=== PATIENT | male | born 1960 | race African-American/Black ===

== ENCOUNTER 2017-05-13 08:25 | Inpatient (IN) | payer OTHER ==
[2017-05-13 09:00] LABS: Add Diff/Slide Review? Slide Review Added; Comments Flag Yes; Hematocrit 42 % (42-52); Hemoglobin 14.1 g/dl (14.0-18.0); Mean Corpuscular HGB Conc 34 g/dl (31-36); Mean Corpuscular Hemoglobin 29 pg (27-31); Mean Corpuscular Volume 86 fL (80-94); Mean Platelet Volume 7 um3 (7.4-10.4); Red Blood Count 4.88 10^6/ul (4.0-5.4); Red Cell Distribution Width 13 % (10.5-15)
--- NOTE | 2017-05-13 09:02 | RAD ---
INDICATION: Headaches. Weakness COMPARISON: None TECHNIQUE: Noncontrast axial source images were acquired from the skull base to the vertex. FINDINGS: Ventricles/sulci: There is cortical atrophy with compensatory dilatation of the CSF spaces. Brain parenchyma: There is periventricular and subcortical white matter change compatible with chronic ischemia. There are multiple, bilateral, basal ganglia lacunar type infarcts. Intracranial hemorrhage:None. Extra-axial spaces: There are no abnormal extra axial fluid collections or evidence of extra-axial mass. Calvarium: There is no calvarial fracture or other acute calvarial abnormality. There may be an ossicle at the skull base Scalp: There is no evidence of scalp or extracalvarial soft tissue abnormality. Paranasal sinuses/mastoid: The paranasal sinuses and mastoid air cells are clear. Other: None. IMPRESSION: CORTICAL ATROPHY WITH EVIDENCE OF PRIOR VASCULAR INSULT. NO ACUTE FINDINGS.
--- NOTE | 2017-05-13 09:03 | RAD ---
INDICATION: Weakness COMPARISON: None TECHNIQUE: An AP seated view was obtained. FINDINGS: Bones/Soft Tissues: There are no acute bony findings. Cardiomediastinal: The cardiomediastinal silhouette is normal. Lungs: There are no infiltrates. Pleura: There are no pleural effusions. Other: None IMPRESSION: NO ACTIVE DISEASE.
[2017-05-13 09:16] LABS: ALT 44 U/L (7-52); AST 25 U/L (13-39); Albumin 4.3 g/dL (3.2-5.2); Alkaline Phosphatase 67 U/L (34-104); Anion Gap 7 mmol/L (2-11); Blood Urea Nitrogen 34 mg/dL (6-24); C Reactive Protein 3.31 mg/L (< 5.00); CO2 Carbon Dioxide 26 mmol/L (22-32); Chloride 106 mmol/L (101-111); Creatine Kinase 84 U/L (10-223); EGFR African American 76.4 (>60); EGFR Non-African American 59.4 (>60); Globulin 3.5 g/dL (2-4); Glucose 137 mg/dL (70-100); Lipase 52 U/L (11.0-82.0); Magnesium 1.9 mg/dL (1.9-2.7); Potassium 3.9 mmol/L (3.5-5.0); Sodium 139 mmol/L (133-145); Total Protein 7.8 g/dL (6.4-8.9); Troponin I 0.03 ng/mL (<0.04)
[2017-05-13] MEDS ORDERED: Aspirin TAB* 325 MG PO ONE (09:22)
[2017-05-13 09:39] LABS: Acetaminophen < 15 mcg/mL; Alcohol < 10 mg/dL (<10); Salicylate < 2.50 mg/dL (<30)
[2017-05-13 09:54] LABS: Cholesterol 157 mg/dL; HDL Cholesterol 39.6 mg/dL; LDL Cholesterol 95 mg/dL; Triglycerides 113 mg/dL
[2017-05-13] MEDS ORDERED: Iohexol 350* (CONTRAST) 500 ML MDV IV ONE (10:03)
--- NOTE | 2017-05-13 11:26 | ED ---
Juan Sanford Angela, scribed for Shadi Alaniz MD on 05/13/17 at 0831 . Neurological HPI - HPI Summary HPI Summary: This pt is a 57 y/o male BIBA from [facility], [place] presenting to [facility] c/o a headache and weakness upon waking up today at 0530. Pt has a history of CVA x5 and previous presentations have included a headache. Pt states he has difficulty ambulating. EMS noted that the pt had some drift on the right arm. Pt denies SOB , chest pain, nausea, vomiting, diarrhea. - History of Current Complaint Stated Complaint: POSSIBLE STROKE Hx Obtained From: Patient, EMS Onset/Duration: Sudden Onset Character: Motor Weakness - Allergy/Home Medications Allergies/Adverse Reactions: Allergies Allergy/AdvReac Type Severity Reaction Status Date / Time No Known Allergies Allergy Verified 05/13/17 08:49 Home Medications: Home Medications ALPRAZolam TAB* [Xanax TAB*] 1 mg PO BID PRN 05/13/17 [History Confirmed ] Acetaminophen TAB* [Tylenol TAB*] 650 mg PO Q6H PRN 05/13/17 [History Confirmed 05/13/17] Aspirin TAB* [Aspirin 325 MG TAB*] 325 mg PO DAILY 05/13/17 [History Confirmed 05/13/17] Atorvastatin* [Lipitor*] 40 mg PO QPM 05/13/17 [History Confirmed 05/13/17] Clopidogrel TAB* [Plavix TAB*] 75 mg PO DAILY 05/13/17 [History Confirmed ] Heparin Sodium (Porcine) [Heparin Sodium] 1 ml SUBCUT Q12HR 05/13/17 [History Confirmed 05/13/17] Hydrochlorothiazide TAB* [Hydrodiuril TAB*] 25 mg PO DAILY 05/13/17 [History Confirmed 05/13/17] Lactase [Dairy Relief] 3,000 unit PO BID WITH MEALS 05/13/17 [History Confirmed 05/13/17] Lisinopril TAB* [Prinivil TAB*] 20 mg PO BID 05/13/17 [History Confirmed ] Nicotine PATCH 21 MG/24 HR* 21 mg TRANSDERM DAILY 05/13/17 [History Confirmed ] Pantoprazole Sodium [Protonix] 40 mg PO DAILY 05/13/17 [History Confirmed ] QUEtiapine TAB* [SEROquel TAB*] 25 mg PO DAILY 05/13/17 [History Confirmed 05/13] Spironolactone TAB* [Aldactone TAB*] 25 mg PO DAILY 05/13/17 [History Confirmed 05/13/17] amLODIPine TAB* [Norvasc 5 mg TAB*] 10 mg PO DAILY 05/13/17 [History Confirmed 05/13/17] busPIRone TAB* [Buspar TAB*] 10 mg PO BID 05/13/17 [History Confirmed 05/13/17] cloNIDine TAB* [Catapres 0.1 MG TAB*] 0.3 mg PO TID 05/13/17 [History Confirmed 05/13/17] oxyCODONE/Acetamin 5/325 MG* [Percocet 5/325 TAB*] 1 tab PO Q6H PRN 05/13/17 [ History Confirmed 05/13/17] PMH/Surg Hx/FS Hx/Imm Hx Cardiovascular History: Reports: Hx Hypertension GI History: Reports: Hx Gastroesophageal Reflux Disease Neurological History: Reports: Hx CVA - x5, Hx Headaches Psychiatric History: Reports: Hx Anxiety, Hx Bipolar Disorder - Family History Known Family History: Negative: Respiratory Disease - Social History Lives: Assisted Living Substance Use Type: Reports: None Smoking Status (MU): Never Smoked Tobacco Review of Systems Negative: Fever, Chills Eyes: Negative ENT: Negative Negative: Chest Pain Negative: Shortness Of Breath Gastrointestinal: Negative Genitourinary: Negative Musculoskeletal: Negative Skin: Negative Positive: Headache, Weakness All Other Systems Reviewed And Are Negative: Yes Physical Exam Triage Information Reviewed: Yes Vital Signs On Initial Exam: Initial Vitals Temp Pulse Resp BP Pulse Ox 98.1 F 80 14 127/91 96 05/13/17 08:25 05/13/17 08:25 05/13/17 08:25 05/13/17 08:25 05/13/17 08:25 Vital Signs Reviewed: Yes Appearance: Positive: Well-Appearing, No Pain Distress Skin: Positive: Warm, Skin Color Reflects Adequate Perfusion Head/Face: Positive: Normal Head/Face Inspection Eyes: Positive: EOMI, LINDA ENT: Positive: Normal ENT inspection Neck: Positive: Supple, Nontender Respiratory/Lung Sounds: Positive: Clear to Auscultation, Breath Sounds Present Cardiovascular: Positive: RRR Abdomen Description: Positive: Nontender Bowel Sounds: Positive: Present Musculoskeletal: Positive: Normal Neurological: Positive: Sensory/Motor Intact, Alert, Oriented to Person Place, Time, Other - Pt has mild bilateral drift on both arms. Both legs are weak. There are no sensation deficits. Pt has slurred speech, but it is at his baseline from previous CVA. Psychiatric: Positive: Affect/Mood Appropriate - Harrison Coma Scale Best Eye Response: 4 - Spontaneous Best Motor Response: 6 - Obeys Commands Best Verbal Response: 5 - Oriented Diagnostics - Vital Signs Vital Signs Temp Pulse Resp BP Pulse Ox 05/13/17 09:18 61 14 114/65 96 05/13/17 09:00 76 93 05/13/17 08:45 70 96 05/13/17 08:25 98.1 F 80 14 127/91 96 - Laboratory Lab Results: Lab Results 05/13/17 05/13/17 05/13/17 Range/Units 08:50 08:50 08:50 WBC (3.5-10.8) 10^3/ul RBC (4.0-5.4) 10^6/ul Hgb (14.0-18.0) g/dl Hct (42-52) % MCV (80-94) fL MCH (27-31) pg MCHC (31-36) g/dl RDW (10.5-15) % Plt Count (150-450) 10^3/ul MPV (7.4-10.4) um3 Neut % (Auto) (38-83) % Lymph % (Auto) (25-47) % Greenlee % (Auto) (1-9) % Eos % (Auto) (0-6) % Baso % (Auto) (0-2) % Absolute Neuts (auto) (1.5-7.7) 10^3/ul Absolute Lymphs (auto) (1.0-4.8) 10^3/ul Absolute Monos (auto) (0-0.8) 10^3/ul Absolute Eos (auto) (0-0.6) 10^3/ul Absolute Basos (auto) (0-0.2) 10^3/ul Absolute Nucleated RBC 10^3/ul Nucleated RBC % INR (Anticoag Therapy) 0.92 (0.89-1.11) APTT 28.0 (26.0-36.3) seconds Sodium 139 (133-145) mmol/L Potassium 3.9 (3.5-5.0) mmol/L Chloride 106 (101-111) mmol/L Carbon Dioxide 26 (22-32) mmol/L Anion Gap 7 (2-11) mmol/L BUN 34 H (6-24) mg/dL Creatinine 1.26 H (0.67-1.17) mg/dL Est GFR ( Amer) 76.4 (>60) Est GFR (Non-Af Amer) 59.4 (>60) BUN/Creatinine Ratio 27.0 H (8-20) Glucose 137 H (70-100) mg/dL Lactic Acid (0.5-2.0) mmol/L Calcium 10.0 (8.6-10.3) mg/dL Magnesium 1.9 (1.9-2.7) mg/dL Total Bilirubin 1.10 H (0.2-1.0) mg/dL AST 25 (13-39) U/L ALT 44 (7-52) U/L Alkaline Phosphatase 67 (34-104) U/L Total Creatine Kinase 84 (10-223) U/L CK-MB (CK-2) 1.2 (0.6-6.3) ng/mL Troponin I 0.03 (<0.04) ng/mL C-Reactive Protein 3.31 (< 5.00) mg/L B-Natriuretic Peptide 28 ( - 100) pg/mL Total Protein 7.8 (6.4-8.9) g/dL Albumin 4.3 (3.2-5.2) g/dL Globulin 3.5 (2-4) g/dL Albumin/Globulin Ratio 1.2 (1-3) Triglycerides 113 mg/dL Cholesterol 157 mg/dL LDL Cholesterol 95 mg/dL HDL Cholesterol 39.6 mg/dL Lipase 52 (11.0-82.0) U/L TSH 1.50 (0.34-5.60) mcIU/mL Salicylates < 2.50 (<30) mg/dL Acetaminophen < 15 mcg/mL Serum Alcohol < 10 (<10) mg/dL 05/13/17 05/13/17 Range/Units 08:50 08:50 WBC 3.0 L (3.5-10.8) 10^3/ul RBC 4.88 (4.0-5.4) 10^6/ul Hgb 14.1 (14.0-18.0) g/dl Hct 42 (42-52) % MCV 86 (80-94) fL MCH 29 (27-31) pg MCHC 34 (31-36) g/dl RDW 13 (10.5-15) % Plt Count 189 (150-450) 10^3/ul MPV 7 L (7.4-10.4) um3 Neut % (Auto) 42.7 (38-83) % Lymph % (Auto) 41.7 (25-47) % Greenlee % (Auto) 11.4 H (1-9) % Eos % (Auto) 3.4 (0-6) % Baso % (Auto) 0.8 (0-2) % Absolute Neuts (auto) 1.3 L (1.5-7.7) 10^3/ul Absolute Lymphs (auto) 1.3 (1.0-4.8) 10^3/ul Absolute Monos (auto) 0.3 (0-0.8) 10^3/ul Absolute Eos (auto) 0.1 (0-0.6) 10^3/ul Absolute Basos (auto) 0 (0-0.2) 10^3/ul Absolute Nucleated RBC 0 10^3/ul Nucleated RBC % 0.1 INR (Anticoag Therapy) (0.89-1.11) APTT (26.0-36.3) seconds Sodium (133-145) mmol/L Potassium (3.5-5.0) mmol/L Chloride (101-111) mmol/L Carbon Dioxide (22-32) mmol/L Anion Gap (2-11) mmol/L BUN (6-24) mg/dL Creatinine (0.67-1.17) mg/dL Est GFR ( Amer) (>60) Est GFR (Non-Af Amer) (>60) BUN/Creatinine Ratio (8-20) Glucose (70-100) mg/dL Lactic Acid 1.3 (0.5-2.0) mmol/L Calcium (8.6-10.3) mg/dL Magnesium (1.9-2.7) mg/dL Total Bilirubin (0.2-1.0) mg/dL AST (13-39) U/L ALT (7-52) U/L Alkaline Phosphatase (34-104) U/L Total Creatine Kinase (10-223) U/L CK-MB (CK-2) (0.6-6.3) ng/mL Troponin I (<0.04) ng/mL C-Reactive Protein (< 5.00) mg/L B-Natriuretic Peptide ( - 100) pg/mL Total Protein (6.4-8.9) g/dL Albumin (3.2-5.2) g/dL Globulin (2-4) g/dL Albumin/Globulin Ratio (1-3) Triglycerides mg/dL Cholesterol mg/dL LDL Cholesterol mg/dL HDL Cholesterol mg/dL Lipase (11.0-82.0) U/L TSH (0.34-5.60) mcIU/mL Salicylates (<30) mg/dL Acetaminophen mcg/mL Serum Alcohol (<10) mg/dL Result Diagrams: 05/13/17 08:50 05/13/17 08:50 Lab Statement: Any lab studies that have been ordered have been reviewed, and results considered in the medical decision making process. - Radiology Chest XR Xray Interpretation: No Acute Changes - IMPRESSION: No acute disease. ED physician has reviewed this radiology report and agrees. Radiology Interpretation Completed By: Radiologist - CT Brain CT CT Interpretation: Positive (See Comments) - IMPRESSION: Cortical atrophy with evidence of prior vascular insult. No acute findings. ED physician has reviewed this radiology report and agrees. CT Interpretation Completed By: Radiologist - EKG 9:01 Cardiac Rate: NL - 71 bpm EKG Rhythm: Sinus Rhythm ST Segment: Normal Ectopy: None EKG Interpretation: Inferior Q wave NIH Scale - NIH Scale Level of Consciousness: Alert/Keenly Responsive Ask Patient the Month and His/Her Age: Both Correct Ask Pt to Open/Close Eyes and Medicare Biller/Release Non-Paretic Hand: Both Correctly Best Gaze (Only Horizontal Eye Movement): Normal Visual Field Testing: No Visual Loss Facial Paresis-Pt to Smile & Close Eyes or Grimace Symmetry: Normal/Symmetrical Motor Function - Right Arm: Drifts LT 10 seconds Motor Function - Left Arm: Drifts LT 10 seconds Motor Function - Right Leg: Drifts LT 10 seconds Motor Function - Left Leg: Drifts LT 10 seconds Limb Ataxia-Must be out of Proportion to Weakness Present: Absent Sensory (Use Pinprick to Test Arms/Legs/Trunk/Face): Normal Best Language (Describe Picture, Name Items): No Aphasia Dysarthria (Read Several Words): Slurs Some Words - CHRONIC SLURRING Extinction and Inattention: No Abnormality Total Score: 5 Course/Dx - Course Course Of Treatment: ADMIT HOSPITALIST STABLE. CRITICAL CARE TIME LESS THAN 30 MINUTES. Assessment/Plan: This pt is a 57 y/o male BIBA from [facility], [place] presenting to [facility] c/o a headache and weakness upon waking up today at 0530. Pt has a history of CVA x5 and previous presentations have included a headache. Pt states he has difficulty ambulating. EMS noted that the pt had some drift on the right arm. Pt denies SOB, chest pain, nausea, vomiting, diarrhea. Labs, chest XR, and CT brain were obtained. In the ED, pt was given aspirin. CT brain revealed cortical atrophy with evidence of prior vascular insult. Chest XR showed no acute disease. Pt will be admitted by Dr. Coles in stable condition. Elevated BP noted and advised to follow up with PCP. Medications reviewed. - Diagnoses Provider Diagnoses: TIA (transient ischemic attack) - Physician Notifications Discussed Care Of Patient With: Katina Coles Time Discussed With Above Provider: 09:17 Instructed by Provider To: Other - I discussed the pt's case with Dr. Coles. She has agreed to admit the pt. Discharge - Discharge Plan Condition: Stable Disposition: ADMITTED TO [facility] documentation as recorded by the Juan morocho Angela accurately reflects the service I personally performed and the decisions made by me, Shadi Alaniz MD.
[2017-05-13] MEDS ORDERED: oxyCODONE/Acetamin 5/325 MG* TAB PO PRN (12:22)
[2017-05-13] MEDS ORDERED: ALPRAZolam TAB* 0.5 MG PO PRN (12:22)
[2017-05-13] MEDS ORDERED: Acetaminophen TAB* 325 MG PO PRN (12:22)
[2017-05-13] MEDS ORDERED: Atorvastatin* 80 MG TAB PO ONE (12:34)
[2017-05-13] MEDS: cloNIDine TAB* 0.1 MG PO SCH ×2 (13:58→20:20)
[2017-05-13] MEDS: Heparin VIAL(*) 5000 UNITS/ML VIAL (FIVE THOUSAND) SUBCUT SCH ×2 (14:02→21:47)
[2017-05-13 14:35] LABS: Urine Bacteria Absent (Absent); Urine Bilirubin Negative (Negative); Urine Glucose Negative (Negative); Urine Nitrite Negative (Negative)
[2017-05-13 14:51] LABS: Benzodiazepine Urine Screen Presumptive Positive (None Detect)
--- NOTE | 2017-05-13 15:21 | HP ---
CC: Dr. Maza" * ADMISSION HISTORY AND PHYSICAL: DATE OF ADMISSION: 05/13/17 PRIMARY CARE DOCTOR: Dr. Maza" through the [place]. MY ATTENDING WHILE IN THE HOSPITAL: Katina Coles DO * (DICTATED BY FREDDY BARAKAT) CHIEF COMPLAINT: Weakness and headache since 5 o'clock this morning. HISTORY OF PRESENT ILLNESS: Mr. Patel is a 57-year-old male with a past medical history significant for multiple CVAs, hypertension, bipolar disorder, and headache disorder, who woke up this morning with headache in the top of his head , which radiated down the back of his neck. The patient is alert and oriented x3 but is a poor historian and speaks tangentially often returning to talk about his conflict with his and daughter believing that they are stealing his money. Patient states he has increased weakness on the right side. The patient states that his symptoms are consistent with previous cerebrovascular accidents he has had. The patient states his most recent CVA was in April. The patient states he went to [facility] after that episode and from there to a detention. The patient states that his heart was pounding in his chest when he woke up this morning, but states that it was related to a bad dream. The patient states yesterday he was having issues with photophobia and this morning he had vision loss, which he was unable to describe, but that was similar to other strokes that he has had. The patient denies any recent illnesses, chest pain, shortness of breath, dizziness, nausea, vomiting, abdominal pain, constipation, or diarrhea. The patient states he has a heart murmur since he was a kid, but could not elaborate on that. The patient had what he believes was an echocardiogram 16 years ago in [place] with an episode of chest pain, but denies ever having coronary artery disease. The patient states that his most recent stroke was the only one he had ever been to a doctor for, in that he had 4 others between 2004 and 2008 for which he did not seek medical attention. PAST MEDICAL HISTORY: 1. Hypertension. 2. Cerebrovascular accident x5. 3. Bipolar disorder. 4. Anxiety. 5. GERD. 6. Headache. 7. Chronic pain. 8. Lactose intolerance. PAST SURGICAL HISTORY: Intussusception repair. MEDICATIONS: 1. Lipitor 40 mg p.o. daily. 2. BuSpar 10 mg b.i.d. 3. Lactase 3000 units with meals. 4. Spironolactone 25 mg daily. 5. Plavix 75 mg daily. 6. Percocet 5/325 q. 6 as needed for pain. 7. Clonidine 0.3 mg p.o. t.i.d. 8. Seroquel 25 mg p.o. daily. 9. HydroDIURIL 25 mg p.o. daily. 10. Protonix 40 mg p.o. daily. 11. Tylenol 650 mg q. 6 hours as needed for pain. 12. Nicotine patch 21 mg q. 24 hours. 13. Amlodipine 10 mg p.o. daily. 14. Aspirin 325 mg p.o. daily. 15. Lisinopril 20 mg p.o. daily. 16. Xanax 1 mg p.o. b.i.d. as needed for anxiety. 17. Heparin 1000 units subcutaneous q. 12 hours. ALLERGIES: The patient has no known drug allergies. FAMILY HISTORY: The patient cannot recall any family history. SOCIAL HISTORY: The patient quit smoking tobacco 2 months ago. The patient denies any recent alcohol use. The patient endorses remote history of marijuana and cocaine use. The patient is disabled, lives in a detention. The patient has an ex- and a daughter with whom he is currently in conflict. REVIEW OF SYSTEMS: The patient denies fevers, cough, changes in his urine, dysuria, hematuria, any rashes, or other changes. PHYSICAL EXAMINATION GENERAL: The patient is a 57-year-old male, who appears stated age, who is sitting on the edge of the stretcher in no acute distress. VITAL SIGNS: Blood pressure 134/91, heart rate 64, temperature 98.1, respiratory rate 16, oxygen saturation 97% on room air. HEENT: Head: Normocephalic, nontraumatic. Sclerae anicteric. Pharynx: Nonerythematous. Mucous membranes are moist. NECK: No lymphadenopathy. Supple. No carotid bruit auscultated. RESPIRATORY: Lungs clear to auscultation bilaterally. Good air exchange. CARDIAC: Regular rate and rhythm. No clicks, murmurs, gallops, or rubs. Pulses +2 in the bilateral radial, posterior tibial, dorsalis pedis areas. No edema noted. ABDOMEN: Soft, nontender, nondistended. Bowel sounds normoactive in all 4 quadrants. No abdominal bruits auscultated. No hepatosplenomegaly. : No suprapubic tenderness. No CVA tenderness. NEURO: Pupils equal, round, approximately 4 mm, reactive to light. Extraocular movements intact. There was a visual field defect to confrontation in the homonymous left lower quadrant. There was a slight right ptosis. There is a significant facial droop with slurring on the right side of the face. Forehead movement equal. Patient eyelids unable to be opened while being tightly closed. The patient states that there is decreased sensation in the right side of his face. No other cranial nerve abnormalities. Patient had 5/5 strength bilaterally in the proximal arm muscles. Patient's strength is 4/5 in the right vp product management and 5/5 in the left vp product management, 4/5 in distal and proximal of right- sided muscle groups and 5/5 in the distal and proximal of left-sided muscle groups. Biceps, patellar, and Achilles reflexes are all 2+ and equal bilaterally. SKIN: No rashes. Dry, intact. LABORATORY DATA/DIAGNOSTIC STUDIES: White blood cell count 3.0, hemoglobin 14.1, hematocrit 42. INR 0.92. APTT 28. Sodium 139, potassium 3.9, chloride 106, carbon dioxide 26, creatinine 1.26, BUN 34, glucose 137. Bilirubin 1.1, AST 25, ALT 44. Troponin 0.03. CRP is 3.31. BNP 28. LDL cholesterol 95, HDL cholesterol 59. Chest x-ray read as no active disease. Brain CT read as cortical atrophy with evidence of prior vascular insult, no acute findings. Head CTA is pending. EKG shows normal sinus rhythm, no ST changes, no other abnormalities. IMPRESSION: The patient is a 57-year-old male with deficits from previous strokes of unknown severity who presents with worsening deficits today possibly from transient ischemic attack or other stroke. We will next admit to telemetry and get assessed for risk factors and maximize secondary prevention. 1. Transient ischemic attack. The patient is already on near maximal secondary prevention. The patient is only on Lipitor 40 with LDL of 95 and a goal of 70. We will increase Lipitor to 80 mg p.o. daily. We will continue aspirin and Plavix at current doses. The patient is on home heparin for unknown reasons. We will discontinue this upon discharge, unless evidence of atrial fibrillation is found. We will order echocardiogram with bubble study and an MRI of the brain to distinguish new from old infarcts. We would recommend outpatient workup for atrial fibrillation possibly including Holter monitor. Will consult Neurology for recommendations. 2. Hypertension. Continue hypertensive medications at home doses. The patient is currently normotensive. We will repeat a BMP in the morning to assess for electrolyte disturbances from medications. 3. Bipolar disorder and anxiety. Continue psychotropic medications at home dose. 4. Gastroesophageal reflux disease. Continue Protonix at home dose. 5. Headache disorder. Patient has Percocet and Tylenol ordered for pain. Patient states these work relatively well for headaches at home. I would not recommend any other medications for headache treatment due to stroke. 6. FEN. Heart heathy diet. No fluids running at this time. 7. DVT prophylaxis. The patient is high risk due to previous strokes. We will start on heparin 5000 units subcutaneous q. 12 hours. We will monitor CBC. 8. Code status. The patient would like to be a full code. The patient's healthcare proxy on record is his daughter, but he states that he would not like her to be his healthcare proxy any more. Social work consulted. 9. Disposition. The patient is currently admitted to telemetry and will be discharged to [facility] when able. 10. We will get neurology consult. TIME SPENT: Approximately 60 minutes were spent on this admission, 30 of which were spent [id number] with the patient obtaining history and physical. This case was discussed with my attending, Dr. Katina Coles and she is in agreement with this plan. FREDDY BARAKAT [id number]/CPS #: [id number] ALEJANDRINA
--- NOTE | 2017-05-13 15:44 | ECHO ---
Patient: JOHANNA BUSTAMANTE [facility] Rec#: [id number] : 1960 Date: 05/13/2017 Age: 57y Height: 187.96 cm / 74.0 in Weight: 95.25 kg / 209.9 lbs Sex: M BSA: 2.22 Room#: 446 Admit Date#: 05/13/2017 Type: Inpatient Referring: Shadi Yanes MD Reading: Tomi St MD Coffee Machine Technician: Nedra HernandezRD,RDMS Transthoracic Echocardiogram Indication: TIA BP: 132/70 HR: 49 Rhythm: Bradycardia Findings History: HTN, CVA x 5, GERD Technical Comments: The study quality is fair. Completed 1520 Left Ventricle: The left ventricular chamber size is normal. Moderate to severe concentric left ventricular hypertrophy is observed. Mild global hypokinesis of the left ventricle is observed. There is mildly decreased left ventricular systolic function. The estimated ejection fraction is 40-45%. Abnormal left ventricular diastolic filling is observed, consistent with impaired relaxation. Left Atrium: The left atrium is mildly dilated. Right Ventricle: The right ventricle wall thickness is mildly increased. The right ventricular cavity size is normal. The right ventricular global systolic function is normal. Right Atrium: The right atrium is mildly dilated. The bubble study is negative. A patent foramen ovale is not demonstrated with color Doppler and agitated contrast. Aortic Valve: The aortic valve leaflets are mildly thickened. Systolic excursion of the aortic valve is normal. There is no evidence of aortic regurgitation. There is no evidence of aortic stenosis. Mitral Valve: The mitral valve leaflets are mildly thickened. There is a trace of mitral regurgitation. There is no evidence of mitral stenosis. Tricuspid Valve: The tricuspid valve leaflets are normal. There is trace tricuspid regurgitation. Unable to estimate the right ventricular systolic pressure. Pulmonic Valve: The pulmonic valve appears normal. There is a trace pulmonic regurgitation. Pericardium: There is no significant pericardial effusion. Aorta: The aortic root appears normal. There is no dilatation of the aortic arch. Pulmonary Artery: The main pulmonary artery appears normal. Venous: The inferior vena cava appears normal in size. There is an approximate 50% respiratory change in the inferior vena cava dimension. Contrast: Intravenous agitated saline contrast was used to assess intracardiac shunting. Conclusions A patent foramen ovale is not demonstrated with color Doppler and agitated contrast. Moderate to severe concentric left ventricular hypertrophy is observed. There is mildly decreased left ventricular systolic function. The estimated ejection fraction is 40-45%. Abnormal left ventricular diastolic filling is observed, consistent with impaired relaxation. The left atrium is mildly dilated. There is a trace of mitral regurgitation. There is trace tricuspid regurgitation. Unable to estimate the right ventricular systolic pressure. There is a trace pulmonic regurgitation. No reports of prior studies offered for comparison. Measurements Name Value Normal Range RVIDd (AP) 2D 2.5 cm (0.9 - 2.6) RVDdMajor (2D) 3.3 cm (2.2 - 4.4) RAd ISD 4CH 5.8 cm (3.4 - 4.9) RA (A4C)W 4.2 cm (2.9 - 4.6) IVSd (2D) 2.1 cm (0.6 - 1) LVPWd (2D) 1.9 cm (0.6 - 1) LVIDd (2D) 4.9 cm (3.6 - 5.4) LVIDs (2D) 3.9 cm - LV FS (2D) 21 % (25 - 45) Aortic Annulus 2.3 cm (1.4 - 2.6) Ao root diameter (2D) 3.2 cm (2.1 - 3.5) Ascending Ao 3.1 cm (2.1 - 3.4) Aortic arch 2.5 cm (1.8 - 3.4) LA dimension (AP) 2D 3.4 cm (2.3 - 3.8) LAd ISD 4CH 6.9 cm (2.9 - 5.3) LA ISD 4CH W 4.1 cm (2.5 - 4.5) Name Value Normal Range LA ESV SP 4CH (A/L) 79.76 ml - LA ESV SP 2CH (A/L) 70.86 ml - LA ESV BP (A/L) 84.74 ml - LA ESV BP (A/L) index 38 ml/m2 - LA ESV SP 4CH (MOD) 72.24 ml - LA ESV SP 2CH (MOD) 65.52 ml - Name Value Normal Range MV E-wave Vmax 0.3 m/sec - MV deceleration time 345 msec - MV A-wave Vmax 0.5 m/sec - MV E:A ratio 0.7 ratio - P. vein S-wave Vmax 0.4 m/sec - P. vein D-wave Vmax 0.4 m/sec - P. vein S:D Vmax ratio 1.02 ratio - P. vein A-wave duration 113 msec - LV lateral e' Vmax 0.09 m/sec - LV E:e' lateral ratio 3.3 ratio - Name Value Normal Range AV Vmax 1.5 m/sec - AV VTI 25.7 cm - AV peak gradient 9 mmHg - AV mean gradient 4.9 mmHg - LVOT Vmax 0.9 m/sec - LVOT VTI 15.1 cm - LVOT peak gradient 3.2 mmHg - LVOT mean gradient 1.7 mmHg - Name Value Normal Range RAP 8 mmHg - IVC diameter 2.1 cm -
[2017-05-13] MEDS: CMCS: Lactase Enzyme (NF) 3,000 UNIT TAB PO SCH (17:06)
[2017-05-13] MEDS ORDERED: Atorvastatin* 40 MG TAB PO SCH (18:00)
--- NOTE | 2017-05-13 19:04 | CONS ---
CONSULTATION REPORT: DATE OF CONSULT: 05/13/17 PATIENT OF: Dr. Yanes, Dr. Kolb and Dr. Coles. PRIMARY CARE DOCTOR: [facility] HISTORY OF PRESENT ILLNESS: Mr. Patel is a 57-year-old right-handed man, who has had multiple prior strokes, he says 5, the most recent one was in April and he was at [facility]. Today, he woke up with a bad headache at his vertex going to his neck. He denies any new numbness, weakness or speech problems. He told me he has had poor vision ever since one of his strokes, but denies anything is new. He also was wanting to go home now and it is unclear to me whether he had a different story for that reason versus just a poor historian. He apparently told Dr. Yanes that he had new visual loss. PAST MEDICAL HISTORY: He has a history of hypertension, his prior strokes, bipolar disorder, anxiety, GERD, headache, chronic pain, lactose intolerance. PAST SURGICAL HISTORY: He is status post intussusception repair. MEDICATIONS: At home included: 1. Lipitor 40 mg daily, now increased. 2. BuSpar 10 mg b.i.d. 3. Lactase with meals. 4. Spironolactone 25 mg daily. 5. Plavix 75 mg daily. 6. Aspirin 325 mg daily. 7. Percocet 5/325 p.r.n. pain. 8. Clonidine 0.3 mg t.i.d. 9. Seroquel 25 mg daily. 10. HydroDIURIL 25 mg daily. 11. Protonix 40 mg daily. 11. Nicotine patch 20 mg q.24 hours. 12. Amlodipine 10 mg daily. 13. Lisinopril 20 mg daily. 14. Xanax 1 mg b.i.d. as needed for anxiety. ALLERGIES: He has no known drug allergies. FAMILY HISTORY: He has no family history for stroke as far as he is aware. SOCIAL HISTORY: He quit smoking tobacco 2 months ago. He does not drink recently. He has had a remote history of marijuana and cocaine use. He is disabled, lives in a senior care. REVIEW OF SYSTEMS: Negative in all 14 spheres other than the HPI. PHYSICAL EXAM: Vital Signs: Temperature 97.9, pulse 72, respirations 52, blood pressure 132/70. He is alert and oriented x3. His speech was slurred, but fluent and he can name objects well. Cranial nerves II through XII were intact. Discs were sharp. Motor exam revealed normal tone and strength. Finger to nose was intact. He had left pronator drift, it is unclear whether this is old or new. Reflexes were 1 and equal. Toes were equivocal to downgoing. Sensation intact to light touch. Reflexes 1 and equal. Chest: Clear. Cardiovascular: Regular rate and rhythm. Abdomen: Soft with positive bowel sounds. DIAGNOSTIC STUDIES/LAB DATA: His CT scan was reviewed and showed diffuse cortical atrophy with white matter disease and several subcortical lacunar infarcts in both the left and right hemisphere. His CTA is pending. He is getting an echo with bubble study which is pending. Blood work had a white count 3000, otherwise normal CBC. Normal INR and PTT. Normal CMP other than BUN of 34, creatinine of 0.26. Total bilirubin of 1.10, LDL 95, HDL 139. UA has 3+ leuk esterase, 2+ white cells, 2+ red cells, absent bacteria. Toxicology was negative other than benzodiazepines. IMPRESSION: Case history is hard to pull apart since he is a poor historian. It will be useful to get his old records from [place] to see what workup was done , but also what his exam looked like at that point. Also, we are getting an MRI scan, which will be useful in addition to see if he has any more recent acute strokes. It looks like he has small vessel ischemic disease in his brain with some lacunar infarcts as well and most likely it is all related to his hypertension, but I would like to get further information and the MRI scan might help clarify. Depending on what that shows, we may pursue further cardiac workup if the bubble study is negative. He will continue the aspirin and Plavix and is on an increased dose of statin at this point. Thank you for sharing his case. [id number]/[facility] #: [id number] [facility]AN HOSPITALJacquie
[2017-05-13] MEDS ORDERED: Diazepam TAB(*) 5 MG PO ONE (19:47)
[2017-05-13] MEDS: Lisinopril TAB* 10 MG PO SCH (20:19)
[2017-05-13] MEDS: busPIRone TAB* 10 MG PO SCH (20:19)
[2017-05-13] MEDS: Nicotine Patch Removal NOTE PATCH OFF SCH (20:22)
[2017-05-14] MEDS: Heparin VIAL(*) 5000 UNITS/ML VIAL (FIVE THOUSAND) SUBCUT SCH ×3 (05:39→22:38)
[2017-05-14 05:55] LABS: Hematocrit 40 % (42-52); Hemoglobin 13.4 g/dl (14.0-18.0); Mean Corpuscular HGB Conc 33 g/dl (31-36); Mean Corpuscular Hemoglobin 29 pg (27-31); Mean Corpuscular Volume 86 fL (80-94); Mean Platelet Volume 7 um3 (7.4-10.4); Red Blood Count 4.68 10^6/ul (4.0-5.4); Red Cell Distribution Width 13 % (10.5-15); White Blood Count 3.6 10^3/ul (3.5-10.8)
[2017-05-14 06:29] LABS: BUN/Creatinine Ratio 22.6 (8-20); Calcium 9.6 mg/dL (8.6-10.3); EGFR African American 45.1 (>60); EGFR Non-African American 35.1 (>60); Potassium 4.6 mmol/L (3.5-5.0)
--- NOTE | 2017-05-14 08:11 | RAD ---
CPT II: CPT II Codes: 3100F INDICATION: Weakness with a history that includes "5 strokes" and "stent placement in head" COMPARISON: Same day CT of the brain dated May 13, 2017 that demonstrates evidence of widespread microvascular disease and age indeterminant lacunar infarctions. TECHNIQUE: A CT angiogram of the head and neck was performed with 80 cc of Omnipaque 350. Contiguous axial sections were obtained from the thoracic inlet through the cap[place] of [place]. Images were reconstructed in the sagittal, coronal planes and in a 3-D volume rendered format. The distal cervical internal carotid artery diameter is used as the denominater for stenosis measurement. CTA NECK: The common and internal carotid arteries are patent without hemodynamically significant stenosis. Right: Just below the carotid bifurcation the common carotid artery measures 9 mm in diameter and the right internal carotid artery just above the carotid bifurcation also measures 9 mm in diameter yielding 0% degree stenosis. There is a focus of coarse atherosclerotic calcification along the posterior margin of the proximal most right internal carotid artery. Beginning at the carotid bulb and extending along the posterior margin of the right internal carotid artery is a linear filling defect (image 129). Left: Just below the carotid bifurcation the common carotid artery measures 9 mm in diameter and the left internal carotid artery just above the carotid bifurcation also measures 9 mm in diameter yielding 0% degree stenosis. There is a focus of coarse atherosclerotic calcification along the anterolateral margin of the left carotid bulb. Beginning at the carotid bulb and extending along the posterior margin of the right internal carotid artery is a linear filling defect (image 123). The vertebral arteries appear patent at their origins. As the right vertebral artery enters the foramen magnum there is a stent. CTA does not reliably determine the patency of the small stent but there is contrast filling both below and immediately above the stent. The left vertebral artery is normal in course and caliber. CTA of the brain: The internal carotid, anterior and middle cerebral arteries appear are patent without high grade stenosis or occlusion. There is coarse atherosclerotic calcification at the clinoid segment of the bilateral internal carotid arteries (axial images 201-204). The vertebral, basilar and posterior cerebral arteries appear patent without high grade stenosis or occlusion. The [place] is complete with diminutive bilateral posterior communicating arteries identified. No focal luminal filling defect, aneurysm or vascular malformation is seen. NON-ARTERIAL FINDINGS: The bilateral basal ganglia there are elongate low density structures (for example image 237) that have a morphology consistent with perivascular spaces. The visualized lung apices exhibit centrilobular emphysematous changes. There are multilevel degenerative changes of the cervical spine including loss of intervertebral disc height and marginal osteophyte formation most severely affecting C6/C7. IMPRESSION: 1. Linear mural based filling defects at the bilateral carotid bulbs are suspicious for dissection flaps. This can be further elicited with carotid ultrasound. 2. Secondary findings of the right vertebral artery stent indicate stent patency although CTA less reliably evaluate patency of such a small stent. 3. No abrupt filling defects or focal aneurysmal dilatation.
[2017-05-14] MEDS ORDERED: Nicotine PATCH 21 MG/24 HR* PATCH TRANSDERM SCH (09:00)
[2017-05-14] MEDS: cloNIDine TAB* 0.1 MG PO SCH ×3 (09:50→20:50)
[2017-05-14] MEDS: QUEtiapine TAB* 25 MG PO SCH (09:50)
[2017-05-14] MEDS: Hydrochlorothiazide TAB* 25 MG PO SCH (09:50)
[2017-05-14] MEDS: amLODIPine TAB* 5 MG PO SCH (09:50)
[2017-05-14] MEDS: Aspirin TAB* 325 MG PO SCH (09:50)
[2017-05-14] MEDS: Clopidogrel TAB* 75 MG PO SCH (09:51)
[2017-05-14] MEDS: Lisinopril TAB* 10 MG PO SCH ×2 (09:51→20:50)
[2017-05-14] MEDS: busPIRone TAB* 10 MG PO SCH ×2 (09:51→22:38)
[2017-05-14] MEDS: Nicotine PATCH 14 MG/24 HR* PATCH TRANSDERM SCH (09:51)
[2017-05-14] MEDS: Spironolactone TAB* 25 MG PO SCH (09:51)
[2017-05-14] MEDS: CMCS: Lactase Enzyme (NF) 3,000 UNIT TAB PO SCH ×2 (09:52→19:37)
[2017-05-14] MEDS: CMCS: Pantoprazole TAB (NF) 40 MG TAB PO SCH (09:59)
[2017-05-14] MEDS ORDERED: NS 0.9% 1000 ML* 1,000 ML IV ONE (15:07)
--- NOTE | 2017-05-14 15:28 | PN ---
Subjective Date of Service: 05/14/17 Interval History: No overnight events. Mr. Patel is upset this morning that he is here; he wants to go home. He wants to go to [place] because he is in love. He says he feels better than yesterday--denies headache, blurry vision, double vision, weakness, numbness, palpitations. Family History: Unchanged from Admission Social History: Unchanged from Admission Past Medical History: Unchanged from Admission Objective Active Medications: Acetaminophen (Tylenol Tab*) 650 mg PO Q6H PRN PRN Reason: PAIN Alprazolam (Xanax Tab*) 1 mg PO BID PRN PRN Reason: ANXIETY Last Admin: 05/14/17 08:09 Dose: 1 mg Amlodipine Besylate (Norvasc Tab*) 10 mg PO DAILY [facility] Last Admin: 05/14/17 09:50 Dose: 10 mg Aspirin (Aspirin Tab*) 325 mg PO DAILY [facility] Last Admin: 05/14/17 09:50 Dose: 325 mg Buspirone HCl (Buspar Tab*) 10 mg PO BID [facility] Last Admin: 05/14/17 09:51 Dose: 10 mg Clonidine HCl (Catapres Tab*) 0.3 mg PO TID [facility] Last Admin: 05/14/17 09:50 Dose: 0.3 mg Clopidogrel Bisulfate (Plavix Tab*) 75 mg PO DAILY [facility] Last Admin: 05/14/17 09:51 Dose: 75 mg Heparin Sodium (Porcine) (Heparin Vial(*)) 5,000 units SUBCUT Q8HR [facility] Last Admin: 05/14/17 05:39 Dose: 5,000 units Hydrochlorothiazide (Hydrodiuril Tab*) 25 mg PO DAILY [facility] Last Admin: 05/14/17 09:50 Dose: 25 mg Sodium Chloride (Ns 0.9% 1000 Ml*) 1,000 mls @ 1,000 mls/hr IV .BOLUS ONE Stop: 05/14/17 16:06 Ceftriaxone Sodium 1,000 mg/ (Sodium Chloride) 50 mls @ 200 mls/hr IVPB Q24H [facility] Sodium Chloride (Ns 0.9% 1000 Ml*) 1,000 mls @ 175 mls/hr IV PER RATE [facility] Lactase (Lactaid Fast Act (Nf)) 3,000 unit PO BID WITH MEALS [facility] PRN Reason: Protocol Last Admin: 05/14/17 09:52 Dose: Not Given Lisinopril (Prinivil Tab*) 20 mg PO BID [facility] Last Admin: 05/14/17 09:51 Dose: 20 mg Nicotine (Nicotine Patch 14 Mg/24 Hr*) 1 patch TRANSDERM DAILY [facility] Last Admin: 05/14/17 09:51 Dose: 1 patch Oxycodone/Acetaminophen (Percocet 5/325 Tab*) 1 tab PO Q6H PRN PRN Reason: HEADACHE Pantoprazole Sodium (Protonix Tab (Nf)) 40 mg PO DAILY [facility] Last Admin: 05/14/17 09:59 Dose: 40 mg Pharmacy Profile Note (Nicotine Patch Removal Note*) 1 note PATCH OFF 2100 [facility] Last Admin: 05/13/17 20:22 Dose: 1 note Quetiapine Fumarate (Seroquel Tab*) 25 mg PO DAILY [facility] Last Admin: 05/14/17 09:50 Dose: 25 mg Spironolactone (Aldactone Tab*) 25 mg PO DAILY [facility] Last Admin: 05/14/17 09:51 Dose: 25 mg Vital Signs 05/13/17 05/13/17 05/13/17 16:05 19:50 19:59 Temperature 98.4 F 98.1 F Pulse Rate 55 53 Respiratory 12 20 20 Rate Blood Pressure 109/79 106/66 (mmHg) O2 Sat by Pulse 95 94 Oximetry 05/13/17 05/14/17 05/14/17 20:19 00:11 03:09 Temperature 97.7 F 97.6 F Pulse Rate 71 49 Respiratory 20 18 16 Rate Blood Pressure 109/75 (mmHg) O2 Sat by Pulse 91 98 Oximetry 05/14/17 05/14/17 05/14/17 03:11 07:58 08:09 Temperature 98.3 F Pulse Rate 51 Respiratory 14 16 Rate Blood Pressure 107/64 100/68 (mmHg) O2 Sat by Pulse 97 Oximetry 05/14/17 05/14/17 05/14/17 10:09 11:44 12:48 Temperature 97.5 F Pulse Rate 76 Respiratory 16 18 Rate Blood Pressure 74/57 80/52 (mmHg) O2 Sat by Pulse 95 Oximetry 05/14/17 14:25 Temperature Pulse Rate Respiratory Rate Blood Pressure 79/45 (mmHg) O2 Sat by Pulse Oximetry Oxygen Devices in Use Now: None Appearance: alert, anxious, sitting up in chair, no distress Eyes: No Scleral Icterus, PERRLA Ears/Nose/Mouth/Throat: NL Teeth, Lips, Gums, Clear Oropharnyx, Mucous Membranes Moist Neck: NL Appearance and Movements; NL JVP, Trachea Midline Respiratory: Symmetrical Chest Expansion and Respiratory Effort, Clear to Auscultation Cardiovascular: NL Sounds; No Murmurs; No JVD, RRR, No Edema Abdominal: NL Sounds; No Tenderness; No Distention, No Hepatosplenomegaly Lymphatic: No Cervical Adenopathy, No Axillary Adenopathy Extremities: No Edema Skin: No Rash or Ulcers Neurological: Alert and Oriented x 3, NL Sensation, NL Gait, NL Muscle Strength and Tone, - - poor attention, labile mood Result Diagrams: 05/14/17 05:40 05/14/17 05:40 Additional Lab and Data: Lab Results 05/13/17 05/13/17 05/13/17 Range/Units 08:50 08:50 08:50 WBC (3.5-10.8) 10^3/ul RBC (4.0-5.4) 10^6/ul Hgb (14.0-18.0) g/dl Hct (42-52) % MCV (80-94) fL MCH (27-31) pg MCHC (31-36) g/dl RDW (10.5-15) % Plt Count (150-450) 10^3/ul MPV (7.4-10.4) um3 Neut % (Auto) (38-83) % Lymph % (Auto) (25-47) % [place] % (Auto) (1-9) % Eos % (Auto) (0-6) % Baso % (Auto) (0-2) % Absolute Neuts (auto) (1.5-7.7) 10^3/ul Absolute Lymphs (auto) (1.0-4.8) 10^3/ul Absolute Monos (auto) (0-0.8) 10^3/ul Absolute Eos (auto) (0-0.6) 10^3/ul Absolute Basos (auto) (0-0.2) 10^3/ul Absolute Nucleated RBC 10^3/ul Nucleated RBC % INR (Anticoag Therapy) 0.92 (0.89-1.11) APTT 28.0 (26.0-36.3) seconds Sodium 139 (133-145) mmol/L Potassium 3.9 (3.5-5.0) mmol/L Chloride 106 (101-111) mmol/L Carbon Dioxide 26 (22-32) mmol/L Anion Gap 7 (2-11) mmol/L BUN 34 H (6-24) mg/dL Creatinine 1.26 H (0.67-1.17) mg/dL Est GFR ( Amer) 76.4 (>60) Est GFR (Non-Af Amer) 59.4 (>60) BUN/Creatinine Ratio 27.0 H (8-20) Glucose 137 H (70-100) mg/dL Lactic Acid (0.5-2.0) mmol/L Calcium 10.0 (8.6-10.3) mg/dL Magnesium 1.9 (1.9-2.7) mg/dL Total Bilirubin 1.10 H (0.2-1.0) mg/dL AST 25 (13-39) U/L ALT 44 (7-52) U/L Alkaline Phosphatase 67 (34-104) U/L Total Creatine Kinase 84 (10-223) U/L CK-MB (CK-2) 1.2 (0.6-6.3) ng/mL Troponin I 0.03 (<0.04) ng/mL C-Reactive Protein 3.31 (< 5.00) mg/L B-Natriuretic Peptide 28 ( - 100) pg/mL Total Protein 7.8 (6.4-8.9) g/dL Albumin 4.3 (3.2-5.2) g/dL Globulin 3.5 (2-4) g/dL Albumin/Globulin Ratio 1.2 (1-3) Triglycerides 113 mg/dL Cholesterol 157 mg/dL LDL Cholesterol 95 mg/dL HDL Cholesterol 39.6 mg/dL Lipase 52 (11.0-82.0) U/L TSH 1.50 (0.34-5.60) mcIU/mL Salicylates < 2.50 (<30) mg/dL Acetaminophen < 15 mcg/mL Serum Alcohol < 10 (<10) mg/dL 05/13/17 05/13/17 Range/Units 08:50 08:50 WBC 3.0 L (3.5-10.8) 10^3/ul RBC 4.88 (4.0-5.4) 10^6/ul Hgb 14.1 (14.0-18.0) g/dl Hct 42 (42-52) % MCV 86 (80-94) fL MCH 29 (27-31) pg MCHC 34 (31-36) g/dl RDW 13 (10.5-15) % Plt Count 189 (150-450) 10^3/ul MPV 7 L (7.4-10.4) um3 Neut % (Auto) 42.7 (38-83) % Lymph % (Auto) 41.7 (25-47) % [place] % (Auto) 11.4 H (1-9) % Eos % (Auto) 3.4 (0-6) % Baso % (Auto) 0.8 (0-2) % Absolute Neuts (auto) 1.3 L (1.5-7.7) 10^3/ul Absolute Lymphs (auto) 1.3 (1.0-4.8) 10^3/ul Absolute Monos (auto) 0.3 (0-0.8) 10^3/ul Absolute Eos (auto) 0.1 (0-0.6) 10^3/ul Absolute Basos (auto) 0 (0-0.2) 10^3/ul Absolute Nucleated RBC 0 10^3/ul Nucleated RBC % 0.1 INR (Anticoag Therapy) (0.89-1.11) APTT (26.0-36.3) seconds Sodium (133-145) mmol/L Potassium (3.5-5.0) mmol/L Chloride (101-111) mmol/L Carbon Dioxide (22-32) mmol/L Anion Gap (2-11) mmol/L BUN (6-24) mg/dL Creatinine (0.67-1.17) mg/dL Est GFR ( Amer) (>60) Est GFR (Non-Af Amer) (>60) BUN/Creatinine Ratio (8-20) Glucose (70-100) mg/dL Lactic Acid 1.3 (0.5-2.0) mmol/L Calcium (8.6-10.3) mg/dL Magnesium (1.9-2.7) mg/dL Total Bilirubin (0.2-1.0) mg/dL AST (13-39) U/L ALT (7-52) U/L Alkaline Phosphatase (34-104) U/L Total Creatine Kinase (10-223) U/L CK-MB (CK-2) (0.6-6.3) ng/mL Troponin I (<0.04) ng/mL C-Reactive Protein (< 5.00) mg/L B-Natriuretic Peptide ( - 100) pg/mL Total Protein (6.4-8.9) g/dL Albumin (3.2-5.2) g/dL Globulin (2-4) g/dL Albumin/Globulin Ratio (1-3) Triglycerides mg/dL Cholesterol mg/dL LDL Cholesterol mg/dL HDL Cholesterol mg/dL Lipase (11.0-82.0) U/L TSH (0.34-5.60) mcIU/mL Salicylates (<30) mg/dL Acetaminophen mcg/mL Serum Alcohol (<10) mg/dL Microbiology and Other Data: Microbiology 05/13/17 14:14 Nasal Screen MRSA (PCR)(NANCY) - Final Nasal Mrsa Negative Assess/Plan/Problems-Billing Assessment: 1. Transient right-sided weakness, resolved. His symptoms are concerning for recrudescence. He describes an exacerbation of his prior stroke symptoms that came on suddenly yesterday. While his recollection of yesterday's events are not consistent between providers, he does consistently describe that his prior stroke symptoms of right upper extremity weakness and worsened speech came back yesterday. For this reason, he needs an infectious work up. He has no metabolic derangements to suggest an explanation for recrudescence. Appreciate neurology input--MRI was recommended but [facility] need [facility], as he reports a recent aneurysm stent/clip. Continue ASA, Plavix, Statin. CT head showed evidence of old ischemic changes; it is unclear why a young man has had these ischemic events. Will obtain records from OSH and monitor him on telemetry; may warrant a holter or loop recorder. No known history of rheumatologic or inflammatory or hypercoagulable conditions that he knows of. 2. NAVEEN (on ckd?) We only have one prior renal function for comparison. May also be contributing to recrudescence symptoms; start IVF resuscitation now. Monitor Ins and Outs. Infectious work up as above. 3. Bipolar Disorder, PTSD Mr. Patel demonstrates poor decision making skills and poor insight. He does not have capacity to make his decisions regarding his disposition in my opinion. He no longer meets needs for SNF. Appreciate psych input regarding appropriate disposition for him, as I do not feel he is safe to be alone.
[2017-05-14] MEDS ORDERED: cefTRIAXone VIAL(*) 1,000 MG in NS 0.9% 50 ML* 50 ML IVPB SCH (16:00)
[2017-05-14] MEDS ORDERED: NS 0.9% 1000 ML* 2,000 ML IV ONE (16:57)
[2017-05-14] MEDS ORDERED: Calcium Carbonate CHEW TAB* 500 MG (TUMS) PO PRN (16:58)
--- NOTE | 2017-05-14 19:22 | PN ---
PROGRESS NOTE: DATE OF SERVICE/DICTATION: 05/14/17 PATIENT OF: Dr. Shadi Yanes. HISTORY: This is a neurological followup on this 57-year-old man. He has no new symptoms from yesterday. He is a little bit less anxious and is more able to articulate his complaints. He has a left visual deficit in both eyes off to the left, which seems to be a new symptom for him. He has no headache. No new numbness or weakness. His speech, he notes no changes with this. MEDICATIONS: Unchanged, include: 1. Spironolactone 25 mg daily. 2. Seroquel 25 mg daily. 3. Protonix 40 mg daily. 4. Percocet p.r.n. headache. 5. Nicotine patch. 6. Lisinopril 20 mg b.i.d. 7. Lactase 300 units b.i.d. with meals. 8. Hydrochlorothiazide 25 mg daily. 9. Plavix 75 mg daily. 10. Catapres 0.3 mg daily. 11. BuSpar 10 mg b.i.d. 12. Aspirin 325 daily. 13. Norvasc 10 mg daily. 14. Xanax 1 mg b.i.d. p.r.n. PHYSICAL EXAMINATION: On exam, temperature 97.5, pulse 44, respirations 18, blood pressure 80/52. He is alert and oriented x3. He had a mildly slurred speech but had no naming and spoke in complete sentences which made sense. Cranial nerves II through XII were intact other than he had a left field cut both eyes to large object. Motor exam revealed normal tone and strength, but he had a left pronator drift unchanged from yesterday. Chest clear. Cardiovascular: Regular rate and rhythm. Abdomen: Soft with positive bowel sounds. LABORATORY DATA/DIAGNOSTIC STUDIES: His echo showed mild atrial dilatation, but no PFO documented on bubble study. His CBC was normal. His INR and PTT were normal. He had a BMP with a BUN of 45, creatinine of 1.99, glucose of 121 today. It is possible in addition to his prior strokes, he could have had a right occipital stroke causing a left visual disturbance and possibly his left pronator drift. I had discussed with Dr. Yanes obtaining an MRI scan, but I do not see it in the orders and it has not been done yet and I will have a call in to him to discuss this further. Also, his records were going to be obtained from [facility] to see what his prior baselines were, but I do not have that either. Depending on his MRI scan results and depending on what his [facility] evaluation was, we may want to monitor him with either a Holter loop recorder to make sure he is not having embolic disease, so full recommendations will follow this additional information. Thank you for sharing his case. [id number]/[facility] #: [id number] ALEJANDRINA
--- NOTE | 2017-05-14 20:22 | PN ---
Hospitalist Progress Note Mr. Patel's records from [facility], [facility] arrived today. He reports having had clips placed in his last hospitalization when the angiography was performed, but the discharge summary does not include this. Need to obtain the operative report to find out what procedure was done at that time. Will hold off on MRI until that can be obtained tomorrow. Also, called by RN for BP 70s/40s after clonidine. I went to evaluate Mr. Patel and he feels well with no new neurologic deficits, and he says he has been taking clonidine for a long time, and this occasionally happens when he takes xanax with clonidine. This may be in response to drug interaction; however alternatively could be developing sepsis (no qsofa critera). I started aggressive IVF resuscitation and after a liter bolus, bp is 90s/60s. Continue to bolus IVF tonight, hold anti-hypertensives, and continue ceftriaxone.
[2017-05-14] MEDS: NS 0.9% 1000 ML* 1,000 ML IV SCH (22:37)
[2017-05-14] MEDS: Nicotine Patch Removal NOTE PATCH OFF SCH (22:38)
[2017-05-15 05:16] LABS: Hematocrit 37 % (42-52); Hemoglobin 12.4 g/dl (14.0-18.0); Mean Corpuscular HGB Conc 34 g/dl (31-36); Mean Corpuscular Hemoglobin 29 pg (27-31); Mean Corpuscular Volume 86 fL (80-94); Mean Platelet Volume 7 um3 (7.4-10.4); Red Blood Count 4.25 10^6/ul (4.0-5.4); Red Cell Distribution Width 13 % (10.5-15); White Blood Count 4.3 10^3/ul (3.5-10.8)
[2017-05-15] MEDS: Heparin VIAL(*) 5000 UNITS/ML VIAL (FIVE THOUSAND) SUBCUT SCH ×2 (05:24→17:45)
[2017-05-15 05:32] LABS: Albumin 3.5 g/dL (3.2-5.2); BUN/Creatinine Ratio 24.5 (8-20); Calcium 8.7 mg/dL (8.6-10.3); EGFR Non-African American 36.5 (>60); Globulin 2.7 g/dL (2-4); Potassium 4.4 mmol/L (3.5-5.0); Total Protein 6.2 g/dL (6.4-8.9)
[2017-05-15] MEDS: NS 0.9% 1000 ML* 1,000 ML IV SCH (07:30)
[2017-05-15] MEDS: QUEtiapine TAB* 25 MG PO SCH (08:39)
[2017-05-15] MEDS: Clopidogrel TAB* 75 MG PO SCH (08:39)
[2017-05-15] MEDS: busPIRone TAB* 10 MG PO SCH (08:39)
[2017-05-15] MEDS: Spironolactone TAB* 25 MG PO SCH (08:39)
[2017-05-15] MEDS: amLODIPine TAB* 5 MG PO SCH (08:39)
[2017-05-15] MEDS: Lisinopril TAB* 10 MG PO SCH (08:40)
[2017-05-15] MEDS: Hydrochlorothiazide TAB* 25 MG PO SCH (08:40)
[2017-05-15] MEDS: CMCS: Lactase Enzyme (NF) 3,000 UNIT TAB PO SCH ×2 (08:40→17:45)
[2017-05-15] MEDS: CMCS: Pantoprazole TAB (NF) 40 MG TAB PO SCH (08:40)
[2017-05-15] MEDS: Aspirin TAB* 325 MG PO SCH (08:40)
[2017-05-15] MEDS: cloNIDine TAB* 0.1 MG PO SCH ×2 (08:40→08:46)
[2017-05-15] MEDS: Nicotine PATCH 14 MG/24 HR* PATCH TRANSDERM SCH (08:47)
[2017-05-15 14:01] VITALS: BP 147/90
--- NOTE | 2017-05-15 14:40 | CONSULT ---
Consult Consult: Consult for Medical Decision Making Capacity S: Psychiatry is asked to comment on the decision making capacity of this 57 y.o. , AA male with a history of severe HTN and multiple recent strokes. The patient was admitted to the Medicine service on 05/13/17 with stroke like symptoms [facility], where he had been undergoing rehabilitation from a stroke suffered one month ago in [place], [place]. The primary team feels that he is medically stable for discharge and has reached all physical and occupational therapy goals, however, his cognition and ability to make informed choices are in question. They note that he has a history of PTSD and bipolar disorders and was overheard making threatening statements about his , daughter and a nurse at [facility]. They feel he is at risk for further strokes if allowed to return to the community. On exam the patient is friendly and cooperative. He reports that he has housing in [place] and that his ex-'s is coming from [place] to hand over the patient's most recent check from [place] for service- connected disability. His plan is to use these funds to purchase an airline ticket from [employer] to [place]. "I know they're worried about another one of these CVA things. As long as I control my temper and don't mad at nobody, I will be fine." He denies SI or HI and specifically denies violent ideation towards family members. "I just want to get back to my home and my doctors in [place]." He feels like SNF-placement is unnecessary at this time. O: the patient scores 28/30 losing one point for date and one point for attention A/P: Capacity: the patient is cognitively intact and understands the treatment being recommended by the primary team. Psychiatry feels he has capacity to make informed medical decisions, although his judgment appears suspect. Psychiatry is signing off. Please reconsult if any further questions arise.
--- NOTE | 2017-05-16 10:26 | DS ---
CC: Dr. Tenorio * DISCHARGE SUMMARY: DATE OF ADMISSION: 05/13/17 DATE OF DISCHARGE: 05/15/17 PRIMARY CARE PROVIDER: Out of the area. CONSULTING NEUROLOGIST: Dr. Tenorio. CONSULTING PSYCHIATRIST: Dr. Swain. DISCHARGE PROVIDER: FREDDY Mcnamara SUPERVISING PHYSICIAN: Dr. Bree Espinoza * (DICTATED BY FREDDY MCNAMARA) PRIMARY DISCHARGE DIAGNOSES: 1. 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 2. Acute on chronic kidney disease. SECONDARY DISCHARGE DIAGNOSES: 1. 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 2. Bipolar disorder and posttraumatic stress disorder with some manic-type behavior but retains capacity to make medical decisions. 3. Recent right vertebral artery aneurysm, status post stenting at [facility]. DISCHARGE MEDICATIONS: 1. Xanax 1 mg p.o. twice daily as needed for anxiety. 2. Aspirin 325 mg p.o. daily. 3. Atorvastatin 80 mg p.o. daily. 4. Plavix 75 mg p.o. daily. 5. Hydrochlorothiazide 25 mg p.o. daily. 6. Lactase 3000 units p.o. twice daily and as needed. 7. Lisinopril 20 mg p.o. b.i.d. 8. Nicotine patch 14 mg apply topically daily. 9. Protonix 40 mg p.o. daily. 10. Seroquel 25 mg p.o. daily. 11. Spironolactone 25 mg p.o. daily. 12. Amlodipine 10 mg p.o. daily. 13. BuSpar 10 mg p.o. twice daily. 14. Percocet 5/325 one tablet p.o. q.6 hours as needed for pain. Medication changes: 1. Increase atorvastatin. HOSPITAL IMAGIN. CT of the brain shows cortical atrophy with evidence of prior vascular insult but no acute findings. 2. Chest x-ray shows no acute disease. 3. CTA of the head shows linear narrow base filling defects at the bilateral carotid bulbs suspicious for a dissection flap. Secondary findings of a right vertebral artery stent, which appears to be patent. No abrupt filling defects or focal aneurysmal dilatation noted. 4. Transthoracic echocardiogram demonstrates left ventricular fraction of 40% to 45%. No evidence of PFO. [id number] LVH with diastolic dysfunction. Trace mitral regurg. No other significant findings. HOSPITAL COURSE: This is a 57-year-old gentleman with a history of multiple prior CVAs as well as bipolar disorder and PTSD, who was brought to the emergency department from [facility] for evaluation of new- onset headache and increased right-sided weakness and visual changes. The patient complains of weakness and visual changes were similar to prior complaints of CVA, but he felt that his symptoms were worse than usual. Initial evaluation demonstrated a normal CBC. Metabolic panel was remarkable only for elevated BUN and creatinine without prior comparison with a BUN of 34, creatinine of 1.26. Transaminases, total bilirubin within normal limits. Troponin negative. Urinalysis was suggestive of possible urinary tract infection with possible leuk esterase, white blood cells, and red blood cells, but no growth on eventual culture and his urine toxicology screen was positive for benzodiazepines, which he is prescribed, but no other illicit substances. The patient had been treated at [facility] for an acute CVA earlier this month and was subsequently transferred to [facility] for rehab. With his worsening symptoms, he presented to our hospital for evaluation. The patient gave a history of a possible clipping procedure that had been completed as a result of a brain aneurysm that had been noted during his recent neurology workup and for that reason of the brain was not initially pursued. The patient's initial symptoms of increased right-sided weakness and visual changes resolved spontaneously. CT of his brain demonstrated multiple old infarcts consistent with his history and CTA of the brain demonstrated a stent in the right vertebral artery. Records arrived from [facility], which were reviewed and demonstrated what was thought to be an incidental finding of a vertebral artery aneurysm measuring 4 x 5 cm which was not within the distribution of his acute infarct for which he was treated. The discharge summary dated 04/17/17 did not mention any endovascular intervention, but the CTA completed at our facility upon admission did mention a stent in the right vertebral artery and no evidence of further aneurysm, so this is assumed to be a recent intervention. The patient underwent evaluation by Physical Therapy and Occupational Therapy as well as Speech Therapy and was felt to no longer have any acute skilled needs that required additional rehab. The patient, however, appeared to be a very poor historian with poor medical decision making and occasional manic-type behavior and statements that were interpreted occasionally to be potentially homicidal in nature. For this reason, the patient was evaluated by Psychiatry to help to address the question of capacity. The patient was willing to participate with any rehab recommendations but did not feel that long-term snf placement was necessary. The patient was found to be competent to make his own medical decision by Psychiatry and was subsequently discharged to home. Home is actually [place] for this gentleman and he had come to the [place] area to help his daughter move into a new house. He will return to [place] at this time, but plans to return to [place] eventually. The patient was evaluated by neurologist, Dr. Tenorio, who recommended additional cardiac monitoring for possible embolic source of his CVA due to multiple prior infarcts that on CT appeared larger than what would be expected from chronic small vessel disease. He did not demonstrate atrial fibrillation during his hospital stay. Due to his lack of followup, a loop recorder was not placed at this time. The patient was given recommendations to follow up with his primary care provider for either placement of a Holter event monitor or a loop recorder to further evaluate for paroxysmal atrial fibrillation that would warrant anticoagulation. In the meantime, dual antiplatelet therapy with Plavix and aspirin were continued at the time of discharge. DISPOSITION AND FOLLOWUP PLAN: The patient is being discharged to home. A 30- day supply of all of his medications was sent to a local pharmacy. He usually receives all his medical care [facility] [place] and was recommended to see his primary care provider as soon as possible after returning home at which point his [facility]. FREDDY MCNAAMRA [id number]/[facility] #: [id number] ALEJANDRINA
== END 2017-05-15 19:15 | disposition home or self-care (01) | DRG 65 ==
LOC: ED 08:25 → MEDTELE 09:30 → OBSVTOIN 05-15 12:32
PROVIDERS: ADMIT Hospitalist; ATTEND Internal Medicine
DX: I63.9 Cerebral infarction, unspecified (principal); N17.9 Acute kidney failure, unspecified; G81.91 Hemiplegia, unspecified affecting right dominant side; I12.9 Hypertensive chronic kidney disease with stage 1 through stage 4 chronic kidney disease, or unspecified chronic kidney disease; E73.9 Lactose intolerance, unspecified; F31.9 Bipolar disorder, unspecified; F41.9 Anxiety disorder, unspecified; K21.9 Gastro-esophageal reflux disease without esophagitis; G89.29 Other chronic pain; R51 Headache; R40.2362 Coma scale, best motor response, obeys commands, at arrival to emergency department; R40.2142 Coma scale, eyes open, spontaneous, at arrival to emergency department; I34.0 Nonrheumatic mitral (valve) insufficiency; R40.2252 Coma scale, best verbal response, oriented, at arrival to emergency department; R29.705 NIHSS score 5; F43.10 Post-traumatic stress disorder, unspecified; Z82.3 Family history of stroke; I69.320 Aphasia following cerebral infarction; Z87.891 Personal history of nicotine dependence; Z79.82 Long term (current) use of aspirin; Z79.02 Long term (current) use of antithrombotics/antiplatelets; Z95.820 Peripheral vascular angioplasty status with implants and grafts
CPT/HCPCS: 36415; 70450; 70496; 70498; 71010; 80048; 80053; 80061; 80307; 80320; 80329; 81003; 81015; 82550; 82553; 83605; 83690; 83735; 83880; 84443; 84484; 85025; 85610; 85730; 86140; 87086; 87641; 93005; 93306; A9270-GY; G0378; G0480; G8978-GP-CH; G8979-GP-CH; G8980-GP-CH; J0696; J1644; Q9967